=== PATIENT | male | born 2000 | race Caucasian/White ===

== ENCOUNTER 2021-12-02 04:01 | Emergency (ER) | payer OTHER, SELFPAY ==
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
[2021-12-02 04:17] VITALS: BP 140/80; PULSE 108; RESP 16; TEMP 36.8; O2SAT 97; BMI 31.1
[2021-12-02] MEDS: Ondansetron ODT 4 MG TAB.RAPDIS TRANSLINGU (04:22)
--- NOTE | 2021-12-02 05:56 | PC.NURSE ---
Mother, Aline notified and will be coming in to see patient. Cell number [phone].
== END 2021-12-02 06:46 | disposition home or self-care (01) ==
LOC: HO.ED 06:36
PROVIDERS: Emergency Provider Internal Medicine
DX: Z04.1 Encounter for examination and observation following transport accident (principal); F10.920 Alcohol use, unspecified with intoxication, uncomplicated; Y90.9 Presence of alcohol in blood, level not specified
CPT/HCPCS: 99283; 99284